=== PATIENT | female | born 1980 | race Caucasian/White ===

== ENCOUNTER 2016-08-10 09:30 | Emergency (ER) | payer OTHER ==
[2016-08-10 10:15] VITALS: BP 122/58
--- NOTE | 2016-08-10 10:22 | UC ---
Throat Pain/Nasal James HPI - HPI Summary HPI Summary: ten ddays of sinus congestion, not improving. - History of Current Complaint Chief Complaint: UCGeneralIllness Stated Complaint: SORE THROAT, AND FEVER Time Seen by Provider: 08/10/16 10:15 Hx Obtained From: Patient Hx Last Menstrual Period: 08/05/16 ?: No Onset/Duration: Sudden Onset, Lasting Weeks Severity: Mild Pain Intensity: 0 - no pain Pain Scale Used: 0-10 Numeric Cough: Nonproductive Associated Signs & Symptoms: Positive: Wheezing, Sinus Discomfort, Nasal Discharge - Epiglottits Risk Factors Epiglottis Risk Factors: Negative - Allergies/Home Medications Allergies/Adverse Reactions: Allergies Allergy/AdvReac Type Severity Reaction Status Date / Time No Known Allergies Allergy Verified 10/28/13 17:12 PMH/Surg Hx/FS Hx/Imm Hx Previously Healthy: Yes Endocrine History Of: Denies: Diabetes, Thyroid Disease Cardiovascular History Of: Denies: Cardiac Disorders, Hypertension Respiratory History Of: Denies: COPD, Asthma GI/ History Of: Denies: Ulcer - Surgical History Surgical History: Yes Surgery Procedure, Year, and Place: d&c more than 7 years ago - Family History Known Family History: Negative: Cardiac Disease, Hypertension - Social History Alcohol Use: Occasionally Substance Use Type: None Smoking Status (MU): Never Smoked Tobacco Review of Systems Constitutional: Fatigue Skin: Negative Eyes: Negative ENT: Sore Throat, Ear Ache, Nasal Discharge Respiratory: Cough Cardiovascular: Negative Gastrointestinal: Negative Genitourinary: Negative Motor: Negative Neurovascular: Negative Musculoskeletal: Negative Neurological: Headache Psychological: Negative All Other Systems Reviewed And Are Negative: Yes Physical Exam Triage Information Reviewed: Yes Appearance: Well-Nourished, Ill-Appearing, Pain Distress Vital Signs: Initial Vital Signs Temp 98.9 F 08/10/16 10:11 Pulse 74 08/10/16 10:11 Resp 16 08/10/16 10:11 BP 122/58 08/10/16 10:11 Pulse Ox 100 08/10/16 10:11 Vital Signs Reviewed: Yes Eye Exam: Normal Eyes: Positive: Conjunctiva Clear ENT: Positive: Pharyngeal erythema, Nasal congestion, Nasal drainage, Tonsillar swelling, Other: - bilateral cerumen impaction Dental Exam: Normal Neck exam: Normal Neck: Positive: Supple, Nontender, Enlarged Nodes @ - behind left ear Respiratory Exam: Normal Respiratory: Positive: Chest non-tender, No respiratory distress, No accessory muscle use, Wheezing, Inspiration Cardiovascular Exam: Normal Cardiovascular: Positive: RRR, No Murmur, Pulses Normal Abdominal Exam: Normal Abdomen Description: Positive: Nontender, No Organomegaly, Soft Bowel Sounds: Positive: Present Musculoskeletal Exam: Normal Musculoskeletal: Positive: Strength Intact, ROM Intact, No Edema Neurological Exam: Normal Neurological: Positive: Alert, Muscle Tone Normal Psychological Exam: Normal Skin Exam: Normal Throat Pain/Nasal Course/Dx - Course Course Of Treatment: hx obtained, exam performed, medication prescribed, bilateral ear flush performed by nurse. - Differential Dx/Diagnosis Differential Diagnosis/HQI/PQRI: Influenza, Laryngitis, Otitis Media, Pharyngitis, Sinusitis, Tonsillitis, URI Provider Diagnoses: sinusitis Discharge - Discharge Plan Condition: Stable Disposition: HOME Patient Education Materials: Sinusitis (ED) Additional Instructions: increase your fluid intake and get plenty of rest. Take the medication as prescribed. Ibuprofen or tylenol for pain and fever. Follow up with any worsening symtpoms.
== END 2016-08-10 10:55 | disposition home or self-care (01) ==
LOC: UCEAST 09:30
DX: J32.9 Chronic sinusitis, unspecified (principal)
CPT/HCPCS: 99212; G0463

== ENCOUNTER 2016-09-27 12:30 | Emergency (ER) | payer OTHER ==
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
[2016-09-27 16:20] VITALS: BP 133/72
== END 2016-09-27 16:21 | disposition home or self-care (01) ==
LOC: ED 12:30
DX: S09.90XA Unspecified injury of head, initial encounter (principal); S90.02XA Contusion of left ankle, initial encounter; Y04.8XXA Assault by other bodily force, initial encounter; Y92.9 Unspecified place or not applicable
CPT/HCPCS: 70450; 99283

== ENCOUNTER 2019-01-30 10:03 | Emergency (ER) | payer OTHER ==
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
[2019-01-30 12:30] VITALS: BP 110/66
== END 2019-01-30 12:20 | disposition home or self-care (01) ==
LOC: UCEAST 10:03
DX: L60.0 Ingrowing nail (principal)
CPT/HCPCS: 99211; G0463